=== PATIENT | female | born 1960 | race African-American/Black ===

== ENCOUNTER 2020-02-29 03:37 | Emergency (ER) | payer MEDICAID ==
[~2020-02-29] VITALS: Ht 167.6 cm; Wt 43.0 kg
[2020-02-29] MEDS ORDERED: LORAZEPAM 2MG/ML CPJ IM STA ×2 (04:06→04:21)
[2020-02-29] MEDS ORDERED: HALOPERIDOL LACTATE 5MG/ML VIAL IM STA (04:21)
[2020-02-29] MEDS ORDERED: DIPHENHYDRAMINE 50MG/ML VIAL IM ONE (04:30)
[2020-02-29 04:36] LABS: BASOPHILS % 0.3 % (0.0-2.0); EOSINOPHILS % 1.5 % (0.0-5.0); HEMATOCRIT. 40.4 % (36.0-48.0); HEMOGLOBIN. 13.7 g/dL (12.0-16.0); LYMPHOCYTES % 37.7 % (20.0-50.0); MEAN CORPUSCULAR HEMOGLOBIN 31.9 pg (28.0-32.0); MEAN CORPUSCULAR VOLUME 94.2 fL (81.0-99.0); MEAN PLATELET VOLUME 8.2 fl (7.4-10.4); MONOCYTES % 11.9 % (2.0-8.0); NEUTROPHILS % 48.6 % (40.0-76.0); PLATELET 235 x1000/uL (130-400); RED BLOOD CELL COUNT 4.29 mill/uL (4.2-5.4); RED CELL DISTRIBUTION WIDTH 14.3 % (11.6-14.6)
[2020-02-29 04:43] LABS: CHLORIDE 111 mEq/L (98-107)
[2020-02-29 04:45] LABS: INR 0.9; PROTHROMBIN TIME 10.1 sec (9.6-11.0)
[2020-02-29 04:48] LABS: ETHANOL BLOOD 244 mg/dL
[2020-02-29 04:52] LABS: CREATINE KINASE 142 IU/L (26-192)
[2020-02-29] MEDS ORDERED: POTASSIUM CHLORIDE 20MEQ TABLET SR PO NR ×2 (05:15→17:30)
[2020-02-29 05:41] LABS: CLARITY URINE CLEAR (CLEAR); COLOR URINE YELLOW (YELLOW); KETONES URINE NEGATIVE (NEGATIVE); LEUKOCYTE ESTERASE URINE NEGATIVE (NEGATIVE); NITRITE URINE NEGATIVE (NEGATIVE); OCCULT BLOOD URINE NEGATIVE (NEGATIVE); PROTEIN URINE NEGATIVE (NEGATIVE)
[2020-02-29 06:03] LABS: *AMPHETAMINES SCREEN URINE NEGATIVE (NEGATIVE)
[2020-02-29 06:04] LABS: *BARBITURATES SCREEN URINE NEGATIVE (NEGATIVE); *BENZODIAZEPINES SCREEN URINE NEGATIVE (NEGATIVE); *COCAINE SCREEN URINE PRESUMTIVE POSITIVE (NEGATIVE); METHADONE URINE SCREEN NEGATIVE (NEGATIVE); OPIATES URINE SCREEN NEGATIVE (NEGATIVE)
[2020-02-29 06:05] LABS: CANNABINOID URINE SCREEN PRESUMTIVE POSITIVE (NEGATIVE); PHENCYCLIDINE URINE SCREEN NEGATIVE (NEGATIVE)
[2020-03-01 16:00] VITALS: BP 115/70
== END 2020-03-01 17:24 | disposition home or self-care (01) ==
LOC: ER 03:37
DX: F23 Brief psychotic disorder (principal); R45.1 Restlessness and agitation; F17.200 Nicotine dependence, unspecified, uncomplicated; F14.10 Cocaine abuse, uncomplicated; F15.10 Other stimulant abuse, uncomplicated
CPT/HCPCS: 36415; 80053; 80305; 80307; 80320; 80329; 81003; 82550; 82962; 83690; 83880; 84443; 84484; 85025; 85610; 93005; 96372; 99285; J1200; J1630; J2060; G0480

== ENCOUNTER 2022-08-12 19:25 | Emergency (ER) | payer MEDICAID ==
[~2022-08-12] VITALS: Ht 170.2 cm; Wt 57.0 kg
[2022-08-12 19:55] VITALS: BP 189/88
[2022-08-12] MEDS ORDERED: IBUPROFEN 600MG TABLET PO STA (22:56)
[2022-08-13] MEDS ORDERED: HYDROCODONE/ACETAMINOPHEN 5/325MG TABLET PO STA (00:34)
[2022-08-13] MEDS ORDERED: NAPR-681 PO (00:55)
[2022-08-13] MEDS ORDERED: T3 PO (00:55)
== END 2022-08-13 01:25 | disposition home or self-care (01) ==
LOC: ER 19:25
DX: S82.092A Other fracture of left patella, initial encounter for closed fracture (principal); D64.9 Anemia, unspecified; W01.0XXA Fall on same level from slipping, tripping and stumbling without subsequent striking against object, initial encounter; Y93.89 Activity, other specified; Y92.9 Unspecified place or not applicable; Z98.890 Other specified postprocedural states
CPT/HCPCS: 29505; 73562; 99283; L1830